=== PATIENT | female | born 1945 | race Two or more races ===

== ENCOUNTER → 2021-10-15 08:00 | Outpatient (CLI) | payer OTHER ==
[~2021-10-15] VITALS: Ht 160 cm; Wt 88.5 kg
[~2021-10-15 08:00] MED LIST: CARDURA XL4 MG PO; HUMALOG100 UNIT/2; HYDROCHLOROTHIA25 MG PO; LIPITOR20 MG PO; METFORMIN HCL1000 M2 PO; SYNTHROID137 MCG PO; TOPROL XL50 M1 PO
== END | disposition home or self-care (01) ==
LOC: LAB 08:00 → EDSTATUS 10-20 10:30 → SURH 10-20 10:30
PROVIDERS: ATTEND Colon & Rectal Surgery
DX: C18.5 Malignant neoplasm of splenic flexure (principal); Z85.038 Personal history of other malignant neoplasm of large intestine; K92.1 Melena; Z03.818 Encounter for observation for suspected exposure to other biological agents ruled out